=== PATIENT | female | born 2005 | race Caucasian/White ===

== ENCOUNTER 2024-09-06 15:18 | Emergency (ER) | payer OTHER ==
--- NOTE | 2024-09-06 15:48 | ED ---
Female Urogenital HPI - General Source: patient, RN notes reviewed Mode of arrival: ambulatory Limitations: no limitations - History of Present Illness Last Menstrual Period: 09/06/24 <Saranya Dickens - Last Filed: 09/06/24 16:41> <Maureen Rios - Last Filed: 09/06/24 22:59> - General Chief complaint: Urogenital Stated complaint: lower right side abdomen pain (cyst burst) Time Seen by Provider: 09/06/24 15:42 - History of Present Illness Initial comments: 18 year old female presenting to the ER for evaluation of right lower quadrant abdominal pain and vaginal bleeding. Patient reports she has been on her menstrual cycle for approximately 2 weeks. Patient reports she started her last menstrual cycle on 08-20-2024. She reports she typically has heavy periods going through 1 pad per hour. She states around 08/25/24 she took plan B to prevent . She admits to a history of ovarian cyst and believes this morning around 3 AM she had a cyst rupture while she was at work as she works midnights. She states she attempted to go home to "sleep it off". States she woke up and was still having continued pain. She did take 40 mg of ibuprofen and placed a lidocaine patch over area. She only reports mild improvement of pain with these measures. She does report a history of anemia and takes iron supplements daily. She states she has been feeling dizzy and lightheaded. Denies any chest pain or shortness of breath. No blood thinning medications. Denies any dysuria or urinary complaints. (Saranya Dickens) - Related Data Allergies Allergy/AdvReac Type Severity Reaction Status Date / Time No Known Allergies Allergy Verified 09/06/24 15:26 Review of Systems ROS Other: All systems not noted in ROS Statement are negative. <Saranya Dickens - Last Filed: 09/06/24 16:41> ROS Other: All systems not noted in ROS Statement are negative. <Maureen Rios - Last Filed: 09/06/24 22:59> ROS Statement: Those systems with pertinent positive or pertinent negative responses have been documented in the HPI. Past Medical History Additional Past Medical History / Comment(s): ovarian cyst Past Surgical History: No Surgical Hx Reported Smoking Status: Current every day smoker <Saranya Dickens - Last Filed: 09/06/24 16:41> General Exam Limitations: no limitations General appearance: alert, in no apparent distress Respiratory exam: Present: normal lung sounds bilaterally. Absent: respiratory distress, wheezes, rales, rhonchi, stridor Cardiovascular Exam: Present: regular rate, normal rhythm, normal heart sounds. Absent: systolic murmur, diastolic murmur, rubs, gallop, clicks GI/Abdominal exam: Present: soft, tenderness (RLQ), normal bowel sounds External exam: Present: normal external exam Speculum exam: Present: normal speculum exam, other (scant cervical bleeding) Neurological exam: Present: alert, oriented X3, CN II-XII intact Skin exam: Present: warm, dry, intact, normal color. Absent: rash <Saranya Dickens - Last Filed: 09/06/24 16:41> Course <Saranya Dickens - Last Filed: 09/06/24 16:41> Vital Signs 09/06/24 09/06/24 15:23 18:15 Temperature 98.8 F 98.4 F Pulse Rate 91 70 Respiratory 16 18 Rate Blood Pressure 116/73 128/84 O2 Sat by Pulse 98 99 Oximetry - Reevaluation(s) Reevaluation #1: 09/06/24 16:34 Pelvic exam tar heat exchanger cleaner by Adelina GONZALEZ (Saranya Dickens) Medical Decision Making - Lab Data Result diagrams: 09/06/24 15:51 09/06/24 15:51 - Radiology Data Radiology results: report reviewed, image reviewed <Saranya Dickens - Last Filed: 09/06/24 16:41> - Lab Data Result diagrams: 09/06/24 15:51 09/06/24 15:51 <Maureen Rios - Last Filed: 09/06/24 22:59> - Medical Decision Making Was pt. sent in by a medical professional or institution (, PA, SCHEDULING MANAGER, urgent care, hospital, or correction...) When possible be specific @ -No Did you speak to anyone other than the patient for history (EMS, parent, family, police, friend...)? What history was obtained from this source @ -Significant other, at bedside, aiding in HPI and past medical history. Did you review nursing and triage notes (agree or disagree)? Why? @ -I reviewed and agree with nursing and triage notes Were old charts reviewed (outside hosp., previous admission, EMS record, old EKG, old radiological studies, urgent care reports/EKG's, correction records)? Report findings @ -No old charts were reviewed Differential Diagnosis (chest pain, altered mental status, abdominal pain women, abdominal pain men, vaginal bleeding, weakness, fever, dyspnea, syncope, headache, dizziness, GI bleed, back pain, seizure, CVA, palpatations, mental health, musculoskeletal)? @ -Differential Abdominal Pain Women:Appendicitis, Cholecystitis, diverticulosis, ischemic bowel, pancreatitis, hepatitis, UTI, gastroenteritis, AAA, incarcerated hernia, bowel obstruction, constipation, inflammatory bowel, hepatitis, peptic ulcer disease, splenic infarction, perforated viscus, vulvitis, ovarian torsion, PID, kidney stone, placenta abruption, this is not meant to be an all-inclusive list EKG interpreted by me (3pts min.). @ -None done X-rays interpreted by me (1pt min.). @ -None done CT interpreted by me (1pt min.). @ -Pending U/S interpreted by me (1pt. min.). @ -Transvaginal ultrasound unremarkable. Appropriate blood flow venous and arterial to bilateral ovaries. What testing was considered but not performed or refused? (CT, X-rays, U/S, labs)? Why? @ -None What meds were considered but not given or refused? Why? @ -None Did you discuss the management of the patient with other professionals (professionals i.e. , PA, SCHEDULING MANAGER, lab, RT, psych nurse, social worker assistant, statistical modeler, teacher, commanding officer traffic division, community case manager)? Give summary @ -No Was smoking cessation discussed for >3mins.? @ -No Was critical care preformed (if so, how long)? @ -No Were there social determinants of health that impacted care today? How? (Homeles sness, low income, unemployed, alcoholism, drug addiction, transportation, low edu. Level, literacy, decrease access to med. care, usp, rehab)? @ -No Was there de-escalation of care discussed even if they declined (Discuss DNR or withdrawal of care, Hospice)? DNR status @ -No What co-morbidities impacted this encounter? (DM, HTN, Smoking, COPD, CAD, Cancer, CVA, ARF, Chemo, Hep., AIDS, mental health diagnosis, sleep apnea, morbid obesity)? @ -None Was patient admitted / discharged? Hospital course, mention meds given and route, prescriptions, significant lab abnormalities, going to OR and other pertinent info. @ -18-year-old female presented the ER with a chief complaint of right lower quadrant abdominal pain. She also states she has been on her menstrual cycle for approximately 2 weeks. History and physical exam completed. Vital stable. Abdomen is soft and tender to the right lower quadrant. Normal bowel sounds. No rebound or guarding. Pelvic exam chaperoned by Adelina LOMELI and showing scant amount of cervical bleeding. CBC showing a leukocytosis of 12.3 with a left shift. Patient does vape. Hemoglobin is stable at 15.1. Coagulation studies within normal limits. CMP unremarkable. hCG is less than 2.4. Urine is contaminated with 7 epithelial cells with no evidence of infection. Transvaginal ultrasound unremarkable. Due to focal right lower quadrant a bdominal tenderness. CT abdomen pelvis ordered and pending. Patient signed out to Maureen Rios PA-C pending CT results and disposition. (Saranya Dickens) I discussed the findings of the CT abdomen and pelvis with the patient revealing no acute intra-abdominal process. She will be discharged home. She is understanding and agreeable with this plan. The case was discussed with Dr. Simon. (Maureen Rios) - Lab Data Lab Results 09/06/24 09/06/24 09/06/24 Range/Units 15:51 15:51 15:51 WBC 12.3 H (4.0-11.0) k/uL RBC 4.56 (3.80-5.40) m/uL Hgb 15.1 (11.4-16.0) gm/dL Hct 43.3 (34.0-46.0) % MCV 94.9 (80.0-100.0) fL MCH 33.1 (25.0-35.0) pg MCHC 34.8 (31.0-37.0) g/dL RDW 11.9 (11.5-15.5) % Plt Count 316 (150-450) k/uL MPV 7.3 Neutrophils % 65 % Lymphocytes % 27 % Monocytes % 6 % Eosinophils % 1 % Basophils % 0 % Neutrophils # 7.9 H (1.3-7.7) k/uL Lymphocytes # 3.3 (1.0-4.8) k/uL Monocytes # 0.7 (0-1.0) k/uL Eosinophils # 0.1 (0-0.7) k/uL Basophils # 0.1 (0-0.2) k/uL PT 12.0 (10.0-12.5) sec INR 1.1 (<1.2) APTT 25.6 (22.0-30.0) sec Sodium (137-145) mmol/L Potassium (3.5-5.1) mmol/L Chloride (98-107) mmol/L Carbon Dioxide (22-30) mmol/L Anion Gap mmol/L BUN (7-17) mg/dL Creatinine (0.52-1.04) mg/dL Est GFR (CKD-EPI)AfAm (>60 ml/min/1.73 sqM) Est GFR (CKD-EPI)NonAf (>60 ml/min/1.73 sqM) Glucose (74-99) mg/dL Calcium (8.4-10.2) mg/dL Total Bilirubin (0.2-1.3) mg/dL AST (14-36) U/L ALT (4-34) U/L Alkaline Phosphatase (38-126) U/L Total Protein (6.3-8.2) g/dL Albumin (3.5-5.0) g/dL HCG, Quant mIU/mL Urine Color Yellow Urine Appearance Cloudy H (Clear) Urine pH 6.0 (5.0-8.0) Ur Specific [place] 1.023 (1.001-1.035) Urine Protein Negative (Negative) Urine Glucose (UA) Negative (Negative) Urine Ketones Negative (Negative) Urine Blood Negative (Negative) Urine Nitrite Negative (Negative) Urine Bilirubin Negative (Negative) Urine Urobilinogen <2.0 (<2.0) mg/dL Ur Leukocyte Esterase Negative (Negative) Urine RBC 5 (0-5) /hpf Urine WBC 1 (0-5) /hpf Ur Squamous Epith Cells 7 H (0-4) /hpf Urine Mucus Moderate H (None) /hpf Blood Type Blood Type Confirm Blood Type Recheck Bld Type Recheck Status Antibody Screen Spec Expiration Date 09/06/24 09/06/24 09/06/24 Range/Units 15:51 16:16 17:15 WBC (4.0-11.0) k/uL RBC (3.80-5.40) m/uL Hgb (11.4-16.0) gm/dL Hct (34.0-46.0) % MCV (80.0-100.0) fL MCH (25.0-35.0) pg MCHC (31.0-37.0) g/dL RDW (11.5-15.5) % Plt Count (150-450) k/uL MPV Neutrophils % % Lymphocytes % % Monocytes % % Eosinophils % % Basophils % % Neutrophils # (1.3-7.7) k/uL Lymphocytes # (1.0-4.8) k/uL Monocytes # (0-1.0) k/uL Eosinophils # (0-0.7) k/uL Basophils # (0-0.2) k/uL PT (10.0-12.5) sec INR (<1.2) APTT (22.0-30.0) sec Sodium 138 (137-145) mmol/L Potassium 3.8 (3.5-5.1) mmol/L Chloride 107 (98-107) mmol/L Carbon Dioxide 25 (22-30) mmol/L Anion Gap 6 mmol/L BUN 12 (7-17) mg/dL Creatinine 0.65 (0.52-1.04) mg/dL Est GFR (CKD-EPI)AfAm >90 (>60 ml/min/1.73 sqM) Est GFR (CKD-EPI)NonAf >90 (>60 ml/min/1.73 sqM) Glucose 91 (74-99) mg/dL Calcium 9.4 (8.4-10.2) mg/dL Total Bilirubin 0.5 (0.2-1.3) mg/dL AST 24 (14-36) U/L ALT 14 (4-34) U/L Alkaline Phosphatase 57 (38-126) U/L Total Protein 7.5 (6.3-8.2) g/dL Albumin 4.6 (3.5-5.0) g/dL HCG, Quant <2.4 mIU/mL Urine Color Urine Appearance (Clear) Urine pH (5.0-8.0) Ur Specific [place] (1.001-1.035) Urine Protein (Negative) Urine Glucose (UA) (Negative) Urine Ketones (Negative) Urine Blood (Negative) Urine Nitrite (Negative) Urine Bilirubin (Negative) Urine Urobilinogen (<2.0) mg/dL Ur Leukocyte Esterase (Negative) Urine RBC (0-5) /hpf Urine WBC (0-5) /hpf Ur Squamous Epith Cells (0-4) /hpf Urine Mucus (None) /hpf Blood Type O Positive Blood Type Confirm O Positive Blood Type Recheck No Previous Record Bld Type Recheck Status CABO Indicated Antibody Screen NEGATIVE Spec Expiration Date 09/09/20242315 Disposition <Saranya Dickens - Last Filed: 09/06/24 16:41> Is patient prescribed a controlled substance at d/c from ED?: No <Maureen Rios - Last Filed: 09/06/24 22:59> Clinical Impression: Abdominal pain Disposition: HOME SELF-CARE Condition: Stable Instructions (If sedation given, give patient instructions): Abdominal Pain (ED) Additional Instructions: Please follow up with your primary care provider. Return to the emergency department for new or worsening symptoms. Referrals: Nonstaff,Physician [Primary Care Provider] - 1-2 days
[2024-09-06 16:05] LABS: Appearance,Urine Cloudy (Clear); Bilirubin,Urine Negative (Negative); Blood,Urine Negative (Negative); Color,Urine Yellow; Glucose,Urine (UA) Negative (Negative); Ketones,Urine Negative (Negative); Leukocyte Esterase,Urine Negative (Negative); Mucus,Urine Moderate /hpf; Nitrite,Urine Negative (Negative); Protein,Urine Negative (Negative); RBC,Urine 5 /hpf (0-5); Specific Gravity,Urine 1.023 (1.001-1.035); Squamous Epithelial Cell,Urine 7 /hpf (0-4); Urobilinogen,Urine <2.0 mg/dL (<2.0); WBC,Urine 1 /hpf (0-5)
[2024-09-06 16:08] LABS: Basophils # (A) 0.1 k/uL (0-0.2); Basophils % (A) 0 %; Eosinophils # (A) 0.1 k/uL (0-0.7); Eosinophils % (A) 1 %; HCT 43.3 % (34.0-46.0); HGB 15.1 gm/dL (11.4-16.0); Lymphocytes # (A) 3.3 k/uL (1.0-4.8); Lymphocytes % (A) 27 %; MCH 33.1 pg (25.0-35.0); MCHC 34.8 g/dL (31.0-37.0); MCV 94.9 fL (80.0-100.0); Mean Platelet Volume 7.3; Monocytes # (A) 0.7 k/uL (0-1.0); Monocytes % (A) 6 %; Neutrophils # (A) 7.9 k/uL (1.3-7.7); Neutrophils % (A) 65 %; Platelet Count 316 k/uL (150-450); RBC 4.56 m/uL (3.80-5.40); RDW 11.9 % (11.5-15.5); WBC 12.3 k/uL (4.0-11.0)
[2024-09-06 16:09] LABS: INR 1.1 (<1.2)
[2024-09-06 16:10] LABS: ALT 14 U/L (4-34); AST 24 U/L (14-36); African American GFR (CKD) >90 (>60 ml/min/1.73 sqM); Albumin 4.6 g/dL (3.5-5.0); Alkaline Phosphatase 57 U/L (38-126); Anion Gap 6 mmol/L; Blood Urea Nitrogen 12 mg/dL (7-17); Calcium 9.4 mg/dL (8.4-10.2); Carbon Dioxide 25 mmol/L (22-30); Chloride 107 mmol/L (98-107); Glucose 91 mg/dL (74-99); Non-African American GFR(CKD) >90 (>60 ml/min/1.73 sqM); Partial Thromboplastin Time 25.6 sec (22.0-30.0); Potassium 3.8 mmol/L (3.5-5.1); Sodium 138 mmol/L (137-145); Total Bilirubin 0.5 mg/dL (0.2-1.3); Total Protein 7.5 g/dL (6.3-8.2)
[2024-09-06 16:26] LABS: HCG,Quantitative Serum <2.4 mIU/mL
--- NOTE | 2024-09-06 16:36 | US ---
EXAMINATION TYPE: US transvaginal DATE OF EXAM: 09/06/2024 COMPARISON: NONE CLINICAL INDICATION: Female, 18 years old with history of RLQ abd pain vag bleeding; TECHNIQUE: Transvaginal (TV). FINDINGS: Date of LMP: 2 weeks ago, still bleeding EXAM MEASUREMENTS: Uterus: 8.1 x 3.6 x 5.1 cm Endometrial Stripe: 1.1 cm Right Ovary: 3.2 x 2.6 x 3.0 cm Left Ovary: 2.5 x 1.3 x 2.1 cm 1. Uterus: anteverted 2. Endometrium: fluid in endocervical canal 3. Right Ovary: 1.9 x 1.5 x 1.9cm hypoechoic lesion 4. Left Ovary: wnl Spectral, color and waveform doppler imaging shows good arterial flow within the ovaries. 5. Bilateral Adnexa: wnl 6. Posterior cul-de-sac: Small volume free fluid, likely physiologic related. IMPRESSION: Unremarkable ultrasound exam of the pelvis [facility], , 09/06/2024 4:33 PM
--- NOTE | 2024-09-06 17:18 | CT ---
EXAMINATION TYPE: CT abdomen pelvis w con DATE OF EXAM: 09/06/2024 5:11 PM COMPARISON: Same day ultrasound study. CLINICAL INDICATION: Female, 18 years old with history of RLQ abd pain; rlq abdomen pain with vaginal bleeding. hx ovarian cyst. TECHNIQUE: Axial CT abdomen pelvis w con;Sagittal and coronal reformats were created on a separate w orkstation. Contrast used:100ML mL of Isovue 300 with IV Contrast, (none if empty) Oral contrast used: without Oral Contrast (none if empty) CT DLP: 370.7 mGycm, Automated exposure control for dose reduction was used. FINDINGS: LOWER CHEST: Unremarkable ABDOMEN LIVER: Unremarkable GALLBLADDER AND BILE DUCTS: Unremarkable. PANCREAS: Unremarkable. SPLEEN: Unremarkable. ADRENAL GLANDS: Unremarkable. KIDNEYS AND URETERS: No evidence of hydronephrosis or renal calculus. The ureters are unremarkable. PELVIS BLADDER: No evidence for wall thickening or mass given limitations of exam. REPRODUCTIVE: Unremarkable. ABDOMEN & PELVIS STOMACH AND BOWEL: Stomach and duodenum are unremarkable No evidence of bowel obstruction. Appendix n ot discretely visualized there are no secondary findings to suggest acute appendicitis. Evaluation li mited however, due to paucity of intra-abdominal fat. Moderate diffuse colonic stool burden suggestin g constipation. PERITONEUM/RETROPERITONEUM: No evidence of pneumoperitoneum or free fluid. VASCULATURE: No evidence of aortic aneurysm. MUSCULOSKELETAL: No acute osseous abnormalities LYMPH NODES: No gross evidence for lymphadenopathy. SOFT TISSUE/ABDOMINAL WALL: Unremarkable IMPRESSION: No acute abnormality in the abdomen/pelvis or CT findings to explain reported symptoms. [facility], , 09/06/2024 5:16 PM
[2024-09-06 18:17] VITALS: BP 128/84; PULSE 70; RESP 18; TEMP 98.4
== END 2024-09-06 18:12 | disposition home or self-care (01) ==
LOC: EC 15:18
DX: R10.31 Right lower quadrant pain (principal); D72.829 Elevated white blood cell count, unspecified; F17.200 Nicotine dependence, unspecified, uncomplicated
CPT/HCPCS: 36415; 86900; 86901; 80053; 85025; 85610; 85730; 86850; 81001; 84702; 93975; 76830; 74177; 99284; Q9967